=== PATIENT | female | born 1970 | race Caucasian/White ===

== ENCOUNTER 2016-09-17 09:54 | Outpatient (CLI) | payer BC | END 2016-09-17 09:55 | disposition home or self-care (01) | DX: Z12.31 Encounter for screening mammogram for malignant neoplasm of breast (principal) ==

== ENCOUNTER 2021-04-02 08:05 | Outpatient (CLI) | payer BC ==
--- NOTE | 2021-04-03 13:19 | Mammography Report ---
BILATERAL DIGITAL SCREENING MAMMOGRAM 3D/2D: 04/02/2021 CLINICAL: Family history of breast cancer. Routine screening. Comparison is made to exams dated: 09/17/2016 mammogram, 02/20/2011 mammogram, 02/10/2010 mammogram, an d 02/12/2009 mammogram - [facility]. There are scattered fibroglandular elements in both breasts. No significant masses, calcifications, or other findings are seen in either breast. There has been no significant interval change. IMPRESSION: NEGATIVE There is no mammographic evidence of malignancy. A 1 year screening mammogram is recommended. This exam was interpreted at Station ID: [id number]. NOTE: For mammograms, a report in lay terms will be sent to the patient. Approximately 15% of breast malignancies will not be visualized mammographically. In the management of a palpable breast mass, a negative mammogram must not discourage biopsy of a clinically suspicious lesion. Electronically Signed By: Iris ware/penrad:04/02/2021 13:18:39 ACR BI-RADS Category 1: Negative 3341F PARENCHYMAL PATTERN: (A) - The breast(s) demonstrate(s) scattered fibroglandular densities. BI-RADS CATEGORY: (1) - 1 RECOMMENDATION: (ANNUAL) - Recommend routine annual screening mammography. [id number] 1 year screening LATERALITY: (B)
== END 2021-04-02 08:06 | disposition home or self-care (01) ==
LOC: DI.N 08:05
PROVIDERS: ATTEND Internal Medicine
DX: Z12.31 Encounter for screening mammogram for malignant neoplasm of breast (principal); Z80.3 Family history of malignant neoplasm of breast

== ENCOUNTER 2023-01-25 07:57 | Emergency (ER) | payer BC ==
--- NOTE | 2023-01-25 08:52 | ED Physician Documentation ---
PD HPI LOWER EXT INJURY - Stated complaint Stated Complaint: LT LEG PX - Chief complaint Chief Complaint: Ext Problem - History obtained from History obtained from: Patient - Additional information Additional information: The patient comes to the emergency department chief complaint of left knee pain for the last week. She states she had an injury back in August and had to avoid climbing stairs for a week after that. She states that she has had some ongoing pain since injury but that it has gradually gotten better. However, last week she tripped and stumbled hard. She says she felt okay initially though she was limping on the left side a little bit more than usual. However, 2 days later, she began to notice increasing pain in her left knee with swelling. She states that its been hard for her to sleep at night and that the pain continue to worsen over the few days time and has never gotten better. She states that it takes her an extended time to build to get up from her bed because of the knee pain but when she is up and moving, it seems to improve the pain a bit. She states her main concern is whether or not anything is fractured. She denies any popping or clicking. She states it just feels like a lot of pressure inside of her knee. No other injuries or complaints at this time. PD PAST MEDICAL HISTORY - Past Medical History Past Medical History: Yes Cardiovascular: Hypertension, High cholesterol Respiratory: None Endocrine/Autoimmune: Type 2 diabetes GI: None [employer]ITECT: None : None HEENT: None Psych: Depression Musculoskeletal: None Derm: None - Past Surgical History Past Surgical History: Yes /[employer]ITECT: section HEENT: Tonsil/Adenoidectomy - Present Medications Home Medications: Ambulatory Orders Medication Instructions Recorded Confirmed Citalopram [CeleXA] 10 mg PO DAILY 10/26/13 01/25/23 Lisinopril 10 mg PO DAILY 10/26/13 01/25/23 Omeprazole [PriLOSEC] 40 mg PO DAILY 10/26/13 01/25/23 Simvastatin [Zocor] 40 mg PO QPM 10/26/13 01/25/23 glipiZIDE [Glucotrol] 5 mg PO BID 10/26/13 01/25/23 metFORMIN [Glucophage] 1,000 mg PO BID 10/26/13 01/25/23 HYDROcod/ACETAM 5/325 [[place] 5/325] 1 - 2 tablet PO Q6H PRN #14 tablet 01/25/23 predniSONE [Deltasone] 10 mg PO [id number] #42 tab 01/25/23 - Allergies Allergies/Adverse Reactions: Allergies Allergy/AdvReac Type Severity Reaction Status Date / Time codeine Allergy vomiting Verified 01/25/23 08:06 - Social History Does the pt smoke?: Yes Smoking Status: Current every day smoker Does the pt drink ETOH?: No Does the pt have substance abuse?: No - Immunizations Immunizations are current?: Yes PD ED PE NORMAL - Vitals Vital signs reviewed: Yes - General General: Alert and oriented X 3, No acute distress, Well developed/nourished - HEENT HEENT: Atraumatic, PERRL, EOMI, Moist mucous membranes - Neck Neck: Supple, no meningeal sign - Cardiac Cardiac: Strong equal pulses - Respiratory Respiratory: No respiratory distress - Derm Derm: Normal color, Warm and dry, No rash - Extremities Extremities: No deformity, No calf tenderness / cord, Other (Mild left knee effusion with tenderness along bilateral joint line and anterior inferior aspect. Intact straight leg raise. Significant limitation to voluntary flexor range of motion, secondary to pain. No AP or mediolateral instability.) - Neuro Neuro: Alert and oriented X 3 - Psych Psych: Normal mood, Normal affect Results - Vitals Vitals: Vital Signs - 24 hr 01/25/23 01/25/23 08:08 10:16 Temperature 36.6 C 36.6 C Heart Rate 98 72 Respiratory 18 16 Rate Blood Pressure 145/85 H 132/89 H O2 Saturation 98 96 Oxygen O2 Source Room air - Rads (name of study) L knee XR series Relevant Findings:: Final report received, See rad report (No acute findings) Procedures - Splint (location) - Minor Left knee Splint applied by: Nurse Type of splint: Other (Articulating knee brace) Other: Patient tolerated well, No complications, Neurovascular intact PD Medical Decision Making - ED course Complexity details: reviewed results, re-evaluated patient, considered differential, d/w patient ED course: The patient was worked up with left knee x-ray series. She declined symptomatic management in the ED because she has to drive home. The patient's x-ray series is negative. I suspect that she had sprained her knee. She was placed in a Velcro knee brace and we have discussed symptomatic management at home and the usual indications for follow-up and return. Departure - Departure Disposition: 01 Home, Self Care Clinical Impression: Knee sprain Qualifiers: Encounter type: initial encounter Involved ligament of knee: unspecified ligament Laterality: left Qualified Code(s): S83.92XA - Sprain of unspecified site of left knee, initial encounter Condition: Stable Instructions: ED Sprain Knee Prescriptions: predniSONE [Deltasone] 10 mg PO [id number] #42 tab HYDROcod/ACETAM 5/325 [[place] 5/325] 1 - 2 tablet PO Q6H PRN #14 tablet PRN Reason: Pain Comments: Your x-ray does not show any broken bones. You have most likely sprained your knee, causing the flareup and pain. You should wear the articulating knee brace for support until the knee is doing better with walking around. Please take i buprofen and Tylenol as needed to help with the discomfort. A prescription for steroid taper and pain medication have been electronically transmitted to the pharmacy of your choice, [facility] in [place]. You should also ice the knee for 20 to 30 minutes at a time, at least a few times a day, and to help with the swelling and inflammation. Propping the leg up whenever you are sitting or laying down is also helpful. Please follow-up with your primary care physician for further concerns. Discharge Date/Time: 01/25/23 10:37
--- NOTE | 2023-01-25 09:25 | XRAY Report ---
PROCEDURE: Knee 3 View LT INDICATIONS: Knee injury/pain TECHNIQUE: 3 views of the left knee(s) were acquired. COMPARISON: None. FINDINGS: Bones: No fractures or dislocations. No suspicious bony lesions. Soft tissues: Moderate knee joint effusion. No suspicious soft tissue calcifications or masses. IMPRESSION: No acute bony abnormality. If there remains a high clinical concern for fracture, including inability to bear weight, consider cross-sectional imaging to exclude an occult fracture. If suspect internal arrangement, consider nonemergent MRI. Reviewed by: Sandeep Garibay MD on 01/25/2023 9:24 AM PDT Approved by: Sandeep Garibay MD on 01/25/2023 9:24 AM PDT Station ID: [id number]
[2023-01-25] MEDS ORDERED: KETOROLAC 60 MG/2 ML VIAL IM STA (10:08)
[2023-01-25 10:19] VITALS: BP 132/89
== END 2023-01-25 10:37 | disposition home or self-care (01) ==
LOC: ED 07:57
DX: S83.92XA Sprain of unspecified site of left knee, initial encounter (principal); X58.XXXA Exposure to other specified factors, initial encounter; F17.200 Nicotine dependence, unspecified, uncomplicated
CPT/HCPCS: 96372; 99283